=== PATIENT | male | born 1975 | race Caucasian/White ===

== ENCOUNTER 2023-01-16 07:25 | Outpatient (CLI) | payer BC, SELFPAY | END 2023-01-16 07:26 | disposition home or self-care (01) | LOC: NFLDREF 01-17 02:03 | PROVIDERS: PCP Family Medicine; Referring Provider Family Medicine; Visit Provider Family Medicine | DX: Z13.1 Encounter for screening for diabetes mellitus (principal); Z13.6 Encounter for screening for cardiovascular disorders | CPT/HCPCS: 80061; 82947 ==

== ENCOUNTER 2023-06-11 09:18 | Outpatient (CLI) | payer BC, SELFPAY | END 2023-06-11 09:19 | disposition home or self-care (01) | LOC: AMB 06-12 08:53 | PROVIDERS: PCP Family Medicine; Visit Provider Family Medicine | DX: R07.89 Other chest pain (principal) | CPT/HCPCS: A0998 ==

== ENCOUNTER 2023-06-11 09:45 | Emergency (ER) | payer BC, SELFPAY ==
[2023-06-11 09:48] VITALS: BP 134/73; PULSE 90; RESP 18; TEMP 36.9; O2SAT 96; BMI 22.1
--- NOTE | 2023-06-11 10:12 | CRLHL7_ITS ---
For Patients: As a result of the Century Cures Act, medical imaging exams and procedure reports are released immediately into your electronic medical record. You may view this report before your referring provider. If you have questions, please contact your health care provider. INDICATION: Chest pain. TECHNIQUE: Chest 2 views. COMPARISON: None. FINDINGS: Cardiovascular and mediastinum: Heart size and vasculature are normal in caliber and appearance. Lungs and pleural spaces: Lungs are clear. No sign of infiltrate or mass. No sign of pleural effusion. No pneumothorax. Bones and soft tissues: No significant findings. IMPRESSION: No acute or significant findings. Dictated by Jay Schaefer MD @ 06/11/2023 10:56:27 AM (Electronically Signed)
--- NOTE | 2023-06-11 10:13 | ED.GENADULT ---
HPI - General Adult General Time Seen by Provider: 10:13 Date Seen: 06/11/23 Chief complaint: Rib Pain Stated complaint: Chest pain Time Seen by Provider: 06/11/23 09:57 Source: patient Mode of arrival: ambulatory Limitations: no limitations History of Present Illness HPI narrative: 40 year white male who reports he has history of seasonal allergies but otherwise is very healthy, does not smoke, presents with some left-sided intermittent finger tip type pain in his left lower chest wall area. It is not present now. It comes variably. He has not had any prior cardiac issues or lung issues, but he does have seasonal allergies and feel like his allergies have been ?acting up?. The patient has had no fever chills shortness of breath diaphoresis anterior chest pain nausea vomiting, leg swelling, edema in the lower extremities. The patient is a tried to get an appointment at the clinic but he was routed through the ambulance to the ER. He is here with his mom was very supportive Related Data Home Medications Medication Instructions Recorded Confirmed multivitamin (Multiple Vitamins 1 tab PO QDAY 01/23/23 01/23/23 tablet) Previous Rx's Medication Instructions Recorded ketoconazole 2 % shampoo 1 applic topical QDAY PRN dandruff 01/23/23 #360 mL Allergies Allergy/AdvReac Type Severity Reaction Status Date / Time No Known Allergies Allergy Unknown Unknown Verified 01/23/23 13:14 Review of Systems Status of ROS: Reports: 6 or more systems reviewed and unremarkable except as noted in History and below [facility] Medical History Situational anxiety ?F41.8 - Other specified anxiety disorders (ICD-10) Positive antinuclear antibody ?R76.8 - Other specified abnormal immunological findings in serum (ICD-10) Nonspecific colitis ?K52.9 - Noninfective gastroenteritis and colitis, unspecified (ICD-10) History of depression ?Z86.59 - Personal history of other mental and behavioral disorders (ICD-10) Femoroacetabular impingement (2011) ?M25.859 - Other specified joint disorders, unspecified hip (ICD-10) Surgical History Status post vasectomy ?Z98.52 - Vasectomy status (ICD-10) Social History Narrative: Alcohol abuse Smoking Status: Never smoker Little interest or pleasure in doing things: not at all Feeling down, depressed, or hopeless: several days Exam Narrative: Exam Narrative: Objective: Patient's vital signs look largely unremarkable. His O2 sat is excellent at 96% He is alert orient x3, pleasant man Neck is supple chest is clear no rales or wheezing Heart rhythm regular heart murmur No palpable chest wall pain patient points to the left lower costochondral margin area where he has the discomfort feeling. This is not present now and it comes and goes. Worse if he lays on his left side and compresses the chest, but not if he lays on his right side or on his back. Extremities are no edema neurologic nonfocal Const: Vital Signs, click to edit/add: Vital Signs - 24 hr 06/11/23 09:48 Temperature 98.5 F Pulse Rate [Right Pulse Oximeter] 90 Respiratory Rate 18 Blood Pressure [Ri ght Upper Arm] 134/73 Pulse Oximetry 96 Oxygen Delivery Me thod Room Air Course Vital Signs Vital signs: Initial Vital Signs Temperature 98.5 F 06/11/23 09:48 Temperature Source Temporal Artery Scan 06/11/23 09:48 Pulse Rate 90 06/11/23 09:48 Respiratory Rate 18 06/11/23 09:48 Blood Pressure 134/73 06/11/23 09:48 Blood Pressure Mean 93 06/11/23 09:48 Blood Pressure Position Sitting 06/11/23 09:48 Pulse Oximetry 96 06/11/23 09:48 Oxygen Delivery Method Room Air 06/11/23 09:48 Vital Signs Temperature 98.5 F 06/11/23 09:48 Pulse Rate 90 06/11/23 09:48 Respiratory Rate 18 06/11/23 09:48 Blood Pressure 134/73 06/11/23 09:48 Pulse Oximetry 96 06/11/23 09:48 Oxygen Delivery Method Room Air 06/11/23 09:48 Temperature 98.5 F 06/11/23 09:48 Pulse Rate 90 06/11/23 09:48 Respiratory Rate 18 06/11/23 09:48 Blood Pressure 134/73 06/11/23 09:48 Pulse Oximetry 96 06/11/23 09:48 Oxygen Delivery Method Room Air 06/11/23 09:48 Medical Decision Making [facility] Narrative Medical decision making narrative: 40-year-old male with history of seasonal allergies with some left lower chest wall discomfort. It does not sound cardiac in nature, but I think could be appropriate given he has had the symptoms to do a troponin, EKG, chest x-ray. Will check a D-dimer. If these are negative I think symptomatic management Advil be appropriate. Patient's EKG by my read shows normal sinus rhythm no acute ST T wave changes some artifact present. Please see addendum dictation Addendum: 11:16 a.m. patient's EKG by my read shows some artifact but no acute changes chest x-ray by my read looks unremarkable, D-dimer is negative troponins negative labs look reassuring. I would recommend the patient do his antihistamine as needed, and some ibuprofen as he may have some chest wall discomfort return as needed, follow-up with primary care as needed. Lab Data Labs: Lab Results 06/11/23 Range/Units 10:25 WBC 5.09 (4.50-11.00) K/uL RBC 5.02 (4.30-5.90) m/uL Hgb 14.7 (13.5-17.5) gm/dL Hct 44.7 (37.0-53.0) % MCV 89 (80-100) fL MCH 29 (26-34) pg MCHC 33 (32-36) gm/dL RDW Coeff of Parvez 12.8 (11.5-15.5) % Plt Count 352 (140-440) K/uL Neut % (Auto) 61.2 (42.0-72.0) % Lymph % (Auto) 29.1 (20-44) % Tift % (Auto) 7.5 (0.0-11.0) % Eos % (Auto) 1.2 (0.0-7.0) % Baso % (Auto) 1.0 (0.0-3.0) % Neut # (Auto) 3.12 (1.7-7.0) K/uL Lymph # (Auto) 1.48 (0.90-2.90) K/uL Tift # (Auto) 0.40 (0.00-0.90) K/UL Eos # (Auto) 0.06 (0.00-0.50) K/uL Baso # (Auto) 0.05 (0.00-0.30) K/uL Abs Immat Gran (auto) 0.00 (0.00-0.30) K/uL Imm/Tot Granulo (auto) 0.0 % D-Dimer Quant (PE/DVT) 0.33 (0.00-0.50) ug/ml POC Troponin I 0.00 L (0.01-0.04) ng/ml Discharge Plan Discharge Clinical Impression: Chest wall pain, Seasonal allergies Patient Disposition: Home, Self-Care Condition: Stable Additional Instructions: Light activity, Advil as needed, resume your seasonal allergy medication. Follow up with regular doctor the next 2-3 days return to the ED as needed. Activity Level: Light activity Discharge Diet: Regular Prescriptions: No Action multivitamin [Multiple Vitamins] Tablet 1 tab PO QDAY ketoconazole 2 % shampoo 1 applic topical QDAY PRN (Reason: dandruff) Qty: 360 3RF Follow Up/Referrals: Erich Madison MD [Primary Care Provider] - Stand Alone Forms: MyHealth Info Instructions
[2023-06-11 10:37] LABS: Basophils Absolute Auto 0.05 K/uL (0.00-0.30); Eosinophils Absolute Auto 0.06 K/uL (0.00-0.50); Eosinophils Percent Auto 1.2 % (0.0-7.0); Hematocrit 44.7 % (37.0-53.0); Hemoglobin* 14.7 gm/dL (13.5-17.5); Lymphocytes Absolute Auto 1.48 K/uL (0.90-2.90); Lymphocytes Percent Auto 29.1 % (20-44); Mean Corpuscular HGB Conc 33 gm/dL (32-36); Mean Corpuscular Hemoglobin 29 pg (26-34); Mean Corpuscular Volume 89 fL (80-100); Monocytes Percent Auto 7.5 % (0.0-11.0); Neutrophils Absolute Auto 3.12 K/uL (1.7-7.0); Neutrophils Percent Auto 61.2 % (42.0-72.0); Platelet Count* 352 K/uL (140-440); RDW Coefficient of Variation % 12.8 % (11.5-15.5); Red Blood Count 5.02 m/uL (4.30-5.90); White Blood Count* 5.09 K/uL (4.50-11.00)
[2023-06-11 10:43] LABS: Slide Review Reflex No
[2023-06-11 10:55] LABS: D Dimer Quantitative* 0.33 ug/ml (0.00-0.50)
== END 2023-06-11 11:25 | disposition home or self-care (01) ==
PROVIDERS: Emergency Provider Family Medicine; PCP Family Medicine
DX: R07.89 Other chest pain (principal); J30.2 Other seasonal allergic rhinitis
CPT/HCPCS: 36415; 71046; 84484; 85025; 85379; 93005; 99284; 99285